=== PATIENT | female | born 1970 | race African-American/Black ===

== ENCOUNTER 2018-03-21 11:52 | Outpatient (CLI) | payer OTHER ==
[2018-03-21 13:03] LABS: Mean Corpuscular HGB CONC 32.4 g/dL (32.0-36.0); Mean Corpuscular Hemoglobin 29.1 pg (27.0-31.0); Mean Corpuscular Volume 89.7 fl (81.0-99.0); Mean Platelet Volume 9.6 fL (7.4-10.4); Platelet Count 205 thou/uL (130-400); RBC Distribution Width 13.6 % (11.5-14.5); Red Blood Cell (RBC) Count 4.81 mill/uL (4.20-5.40); White Blood Cell (WBC) Count 4.8 thou/uL (4.8-10.8)
[2018-03-21 13:16] LABS: PTT 27.9 SEC (22.9-36.1)
[2018-03-21 13:17] LABS: Prothrombin Time 13.2 SEC (12.0-14.7)
[2018-03-21 13:27] LABS: Anion Gap 12 mmol/L (10-20); BUN (Urea Nitrogen) 11 mg/dL (7.0-18.7); Calc. Creatinine Clearance 0 mL/min (70-130); Calcium 9.5 mg/dL (7.8-10.44); Carbon Dioxide 24 mmol/L (22-29); Chloride 106 mmol/L (98-107); Estimated GFR-MDRD Greater than 90; Glucose 93 mg/dL (70-105); Potassium 4.4 mmol/L (3.5-5.1); Sodium 138 mmol/L (136-145)
[2018-03-21 14:40] LABS: BHCG - Serum Negative (NEGATIVE); Pregs Control Background? CLEAR/WHITE (CLR/WHITE); Pregs Control Bar Appear? YES (CONTROL BAR)
== END 2018-03-21 11:53 | disposition home or self-care (01) ==
LOC: LABBT 11:52
PROVIDERS: ATTEND Obstetrics & Gynecology
DX: Z01.812 Encounter for preprocedural laboratory examination (principal); D21.9 Benign neoplasm of connective and other soft tissue, unspecified; N92.6 Irregular menstruation, unspecified; D64.9 Anemia, unspecified
CPT/HCPCS: 80048; 84703; 85027; 85610; 85730; 86850; 86900; 86901

== ENCOUNTER 2018-03-24 07:47 | Inpatient (IN) | payer OTHER ==
[2018-03-21 12:46] VITALS: BMI 33.7
[~2018-03-24 07:47] MED LIST: ISOVUE-370 76%-LOCM 1 ML ONE
[2018-03-24] MEDS ORDERED: CEFAZOLIN/Water 2 GM/20 ML SYRINGE ONE (08:19)
[2018-03-24] MEDS ORDERED: Gabapentin 300 MG CAP PO ONE (08:30)
[2018-03-24] MEDS ORDERED: Famotidine 40 MG/4 ML VIAL SLOW IVP ONE (08:30)
[2018-03-24] MEDS ORDERED: Midazolam HCl 2 mg/2 ml Vial ONE (09:39)
[2018-03-24] MEDS ORDERED: Ondansetron HCl/PF 4 MG/2 ML Vial ONE ×2 (09:39→12:23)
[2018-03-24] MEDS ORDERED: Fentanyl 250 MCG/5 ML VIAL ONE (09:39)
[2018-03-24] MEDS ORDERED: Bupivacaine HCl 0.5%/Epinephrine 1:200,000/PF 30 ml Vial ONE (09:49)
[2018-03-24] MEDS ORDERED: Fentanyl 100 MCG/2 ML VIAL ONE ×2 (11:03→14:35)
[2018-03-24] MEDS ORDERED: Promethazine HCl 25 MG/ML VIAL IM PRN ×2 (12:06→15:49)
[2018-03-24] MEDS ORDERED: HYDROmorphone 2 MG/ML VIAL SLOW IVP PRN (12:06)
[2018-03-24] MEDS ORDERED: Ondansetron HCl/PF 4 MG/2 ML Vial IVP PRN ×2 (12:06→15:49)
[2018-03-24] MEDS ORDERED: Promethazine HCl 25 MG/ML VIAL SLOW IVP PRN (12:06)
[2018-03-24] MEDS ORDERED: Lidocaine 1% PF 5 ML VIAL ONE (12:23)
[2018-03-24] MEDS ORDERED: Dexamethasone 20 MG/5 ML VIAL ONE (12:23)
[2018-03-24] MEDS ORDERED: PROPOFOL 200 MG/20 ML VIAL ONE (12:23)
[2018-03-24] MEDS ORDERED: Glycopyrrolate 0.2 MG/ML 5 ML SYRINGE ONE (12:23)
[2018-03-24] MEDS ORDERED: Labetalol 100 MG/20 ML MDV ONE (12:23)
[2018-03-24] MEDS ORDERED: ePHEDrine/0.9% NaCl/PF SYRINGE 50 mg/10 ml ONE (12:23)
[2018-03-24] MEDS ORDERED: Ropivacaine 0.2% 550 ML 750 ML NERVE BLCK SCH (13:15)
[2018-03-24] MEDS ORDERED: Ropivacaine HCl/PF 750 ML in Premix Bag 1 BAG NERVE BLCK SCH (13:45)
[2018-03-24] MEDS ORDERED: oxyCODONE ER 10 MG TAB PO PRN (15:49)
[2018-03-24] MEDS ORDERED: Simethicone Chewable 80 MG TAB PO PRN (15:49)
[2018-03-24] MEDS ORDERED: diphenhydrAMINE 25 MG CAP PO PRN (15:49)
[2018-03-24] MEDS ORDERED: Morphine 5 MG/ML SYRINGE SLOW IVP PRN (15:49)
[2018-03-24] MEDS ORDERED: traMADol HCl 50 MG TAB PO PRN ×2 (15:49)
[2018-03-24] MEDS ORDERED: Bisacodyl 10 MG SUPP PR PRN (15:49)
[2018-03-24] MEDS ORDERED: Zolpidem Tartrate 5 MG TAB PO PRN (15:49)
[2018-03-24] MEDS ORDERED: Acetaminophen 500 MG TAB PO PRN (16:36)
--- NOTE | 2018-03-24 19:03 | RAD ---
PORTABLE CHEST: HISTORY: Chest pain and pressure. FINDINGS: Heart size is within normal limits, considering the portable technique. Mediastinal structures are u nremarkable. Lungs are clear of infiltrates. No signs of failure. IMPRESSION: No active intrathoracic disease. POS: [facility]
--- NOTE | 2018-03-24 19:54 | CT ---
CT ANGIO CHEST PERFORMED WITH INTRAVENOUS CONTRAST ENHANCEMENT WITH 3D RECONSTRUCTIONS: HISTORY: Chest pain and pressure. FINDINGS: The lungs are clear of infiltrative process. There is some minimal linear scarring in the lung bases . No pulmonary nodules or pleural effusions. The thoracic aorta is normal in caliber. There is fairly good pulmonary arterial opacification. No CT evidence for pulmonary embolus. More peripheral emboli are not excluded on the basis of this exam . The visualized liver parenchyma shows a peripherally enhancing lesion in the right lobe of the liver. This is most likely a hemangioma, not fully characterized on this exam. The right and left adrenal glands are normal in appearance. IMPRESSION: 1. No CT evidence for pulmonary embolus. 2. Peripherally enhancing mass, measuring approximately 2.2 cm in size, within the right lobe of the liver, most likely a hemangioma. POS: [facility]
[2018-03-24 20:49] LABS: Troponin I Less than 0.010 ng/mL (< 0.028)
[2018-03-24] MEDS: Sodium Chloride 0.9% 1,000 ML IV SCH (22:32)
[2018-03-24] MEDS: Ibuprofen 800 MG TAB PO SCH (22:33)
[2018-03-25] MEDS ORDERED: Enoxaparin Sodium 40 MG/0.4 ML SYRINGE SC SCH (00:01)
[2018-03-25] MEDS: Sodium Chloride 0.9% 1,000 ML IV SCH ×2 (00:55→09:10)
--- NOTE | 2018-03-25 01:39 | PRG ---
DATE OF SERVICE: 03/24/2018 This is hospital day #0. HISTORY OF PRESENT ILLNESS: Ms. Veena Arriaza is a 47-year-old status post a robotic-assisted total laparoscopic hysterectomy with bilateral salpingectomy with intracorporeal morcellation of large uterus with fibroids. Of note, the patient has a history of pulmonary embolus in 2017, off warfarin. I was notified by RN due to patient's complaint of chest pressure and discomfort. RN states that the patient's exam was stable and vital signs were stable. However, patient did continue to complain about this despite receiving pain medications. OBJECTIVE: VITAL SIGNS: Pulse is 96, respiratory rate was 22, oxygen saturation is 97% on room air, blood pressure is 166/94. Per RN, the remainder of the exam was benign. IMAGING: A chest x-ray was negative for any acute process. EKG was interpreted to be negative for acute process. CT exam did not demonstrate any evidence for pulmonary embolus. LABORATORY DATA: Troponins was less than 0.010. ASSESSMENT: A 47-year-old F, POD #0 with chest discomfort that has now resolved. Reviewed normal imaging and laboratory assessment with the floor RN. RN states that the patient's symptoms have resolved after ambulation. The patient is scheduled to start prophylactic Lovenox and this can be due to her history, and I will complete 3 troponin evaluations to completely evaluate for cardiopulmonary and pericardial process. We will continue to monitor the patient closely for her postoperative care. VERONIKA
[2018-03-25 02:19] LABS: Troponin I Less than 0.010 ng/mL (< 0.028)
--- NOTE | 2018-03-25 05:06 | OP ---
PREOPERATIVE DIAGNOSES: 1. Abnormal uterine bleeding. 2. Uterine fibroids. 3. Anemia with history of requiring transfusion. 4. History of pulmonary embolus. POSTOPERATIVE DIAGNOSES: 1. Abnormal uterine bleeding. 2. Uterine fibroids. 3. Anemia with history of requiring transfusion. 4. History of pulmonary embolus. PROCEDURES: 1. Robotic assisted total laparoscopic hysterectomy. 2. Bilateral salpingectomy. 3. Contained intracorporeal morcellation of specimen using gel point system. SURGEON: Graciela Wang D.O. TRAY SETTER: Debbie Smith M.D. ANESTHESIA: General. COMPLICATIONS: None. ESTIMATED BLOOD LOSS: 100 mL. IV FLUIDS: 1700 mL. URINE OUTPUT: 230 mL. FINDINGS: Normal external genitalia, normal vaginal and cervical epithelium, uterus approximately 16-17 cm in length with a large fundal fibroid as well as small fibroids within the remainder of the uterus, normal appearing ovaries, and fallopian tubes bilaterally and transperitoneal identification of bilateral ureters with peristalsis. INDICATIONS FOR THE PROCEDURE: Ms. Veena Arriaza is a 47-year-old G4, P3 who presented to clinic with a history of abnormal uterine bleeding due to large fibroid uterus. Patient had undergone multiple admissions requiring a transfusion due to her bleeding. She also complained of pelvic pain and pressure. Patient has a history of a pulmonary embolus in 2017 therefore has contraindication to estrogen containing medical management of her abnormal uterine bleeding and has failed other therapies. Patient has been off warfarin anticoagulation for 11 days and she had completed her treatment. Patient was counseled on her management options and highly desired definitive surgical management with a hysterectomy due to the size of the uterus, she was offered laparoscopic minimally invasive surgery versus traditional laparotomy and patient desired to proceed with laparoscopic surgery with contained morcellation. PROCEDURE IN DETAIL: The patient was brought to the operating room. She was placed under general anesthesia. The patient was placed in dorsal lithotomy position using Dave stirrups and she was appropriately positioned for robotic surgery, then she was given Ancef preoperatively. Patient was prepped and draped in the sterile fashion. An official timeout was performed. The vaginal portion was again by entering the speculum and grasping of the cervix using a single-tooth tenaculum. The cervix was sequentially dilated using Emmanuel dilators and the uterus was sounded approximately 14 cm. A JEREMY manipulator cup was inserted into the uterine cavity using a 12 cm in length and 4-cm cup and it was appropriately secured. The bladder was drained using a Ryan catheter. The gloves were exchanged and attention was turned to the abdominal portion. A supraumbilical incision was made using a scalpel and the Veress needle was inserted into the peritoneal cavity. Peritoneal cavity was insufflated, noting a normal pressure. The 12-mm trocar was inserted. The robotic camera was inserted and the patient was placed in a steep Trendelenburg position. The pelvis was evaluated, noting approximately 16-17 week uterus with a large fundal fibroid. Two assistant county attorney ports were placed, one on the right and one on the left aspect of the abdomen using the 8-mm robotic trocars. All incisions were made using local anesthesia and trocars were inserted under direct visualization. At this time, the 12-mm suprumbilical trocar incision was extended using the scalpel along the edge of the trocar and allowing for approximately 2-3 cm incision. The trocar was then removed and the Per O retractor was inserted. The GelPoint bag was placed into the abdomen and the GelPOINT device was applied. The abdomen was reinsufflated and the camera trocar as well as assistant county attorney port were then inside the GelPOINT device. The robot was then appropriately docked to the patient and a monopolar scissor and bipolar fenestrated forceps were used. The hysterectomy was begun, the left fallopian tube was coagulated along its entirely then transected completely removing the left fallopian tube. The left round ligament was then coagulated and transected, allowing entrance into the broad ligament. The anterior leaf of the broad ligament was undermined and transected down towards the level of the bladder with creating bladder reflection inferiorly. The utero-ovarian ligament was then coagulated and transected on the left side, creating hemostasis. The posterior peritoneum was then reflected and transected down towards the level of the uterosacral ligaments. The uterine vessels were further skeletonized using meticulous dissection on the left aspect of the uterus. Uterine vessels were then coagulated multiple times, however, not yet transected. The attention was turned over to the right aspect of the uterus, where the right fallopian tube was removed in its entirety using coagulation with transection. The right round ligament was then coagulated and transected as well, allowing entrance into the broad ligament on the right side. The anterior leaf of the broad ligament on the right aspect was undermined and transected allowing inferior reflection of the bladder on this side as well. The right utero-ovarian ligament was coagulated multiple times and transected, creating hemostasis. The posterior leaf of the broad ligament was also reflected down. There were areas of oozing along the right aspect of the peritoneum for increasing vasculature from the uterine fibroids that required additional hemostasis. The right uterine vessels were then skeletonized and coagulated multiple times. Attention was turned back to portion with bladder flap was further created, transecting this areolar tissue from the cervicovaginal junction. The attention was turned back to the right aspect of the uterus, where the uterine vessels were again coagulated this time and they were transected. There was an area along the right uterine vessel that required additional coagulation after transection to achieve hemostasis. The colpotomy was carried around anteriorly and down to the left aspect, eventually completely removing the cervix from the vaginal epithelium. Once the uterus and cervix were completely attached, they were set aside. There was an area of bleeding on the right aspect of the vaginal cuff that was controlled using bipolar cautery. The pelvis was then irrigated and cleared of all clot and debris. The vaginal cuff was then closed in a running fashion using 0 Stratafix suture starting from the right aspect of the cuff with complete closure over to left aspect of cuff. The suture was cut and the needle was removed. The pelvis was thoroughly irrigated and cleared of all clot and debris. Tisseel hemostatic agent was placed on the cuff and the ovarian pedicles. The ON-Q pump was then inserted slightly below the umbilicus under direct visualization and the catheter was placed in the pelvic cavity. Attention was then turned to the morcellation portion of the procedure. The uterus was grasped and placed into the GelPOINT bag and the entire edge of the opening to the bag was brought through the assistant county attorney trocar. The robot was undocked from the patient. The GelPOINT bag was brought up through the GelPOINT device and the abdomen had been deflated. The specimen was completely contained within the bag. The specimen was grasped using Torres clamps and morcellation was performed in "C" fashion allowing large pieces of the uterus to be removed at once. The morcellation took approximately 25 to 30 minutes. Once the morcellation was completed the GelPOINT bag was removed. The abdomen has been completely deflated and the remaining trocars were also removed. The fascia along the midline incision was closed using a 0 Vicryl. The subcutaneous layer was also reapproximated and the skin of all sites were closed using 4-0 Monocryl and Dermabond. The patient was then placed back in supine position. All counts were correct x2. She was extubated without difficulty then transferred to the PACU in hemodynamically stable condition. The length and difficulty of the procedure were extended by approximately 30-45 minutes due to the difficulty with enlarged uterus and required extensive morcellation. VERONIKA
[2018-03-25 05:42] LABS: #Lymphocytes 1.1 thou/uL (1.20-3.40); #Monocytes 0.5 thou/uL (0.11-0.59); #Neutrophils 6.1 thou/uL (1.40-6.50); %Basophils 0.2 % (0.0-1.0); %Eosinophils 0.2 % (0.0-10.0); %Lymphocytes 14.3 % (21.0-51.0); %Monocytes 6.9 % (0.0-10.0); %Neutrophils 78.5 % (42.0-75.0); Hemoglobin 13.6 g/dL (12.0-16.0); Mean Corpuscular HGB CONC 31.4 g/dL (32.0-36.0); Mean Corpuscular Hemoglobin 28.2 pg (27.0-31.0); Mean Corpuscular Volume 89.8 fl (81.0-99.0); Mean Platelet Volume 9.3 fL (7.4-10.4); Platelet Count 240 thou/uL (130-400); RBC Distribution Width 13.6 % (11.5-14.5); Red Blood Cell (RBC) Count 4.83 mill/uL (4.20-5.40); White Blood Cell (WBC) Count 7.8 thou/uL (4.8-10.8)
[2018-03-25 05:53] LABS: Anion Gap 9 mmol/L (10-20); BUN (Urea Nitrogen) 6 mg/dL (7.0-18.7); Calc. Creatinine Clearance 130 mL/min (70-130); Calcium 9.6 mg/dL (7.8-10.44); Carbon Dioxide 30 mmol/L (22-29); Chloride 106 mmol/L (98-107); Estimated GFR-MDRD Greater than 90; Glucose 109 mg/dL (70-105); Potassium 4.3 mmol/L (3.5-5.1); Sodium 141 mmol/L (136-145)
[2018-03-25] MEDS ORDERED: HYDROcodone/Acetaminophen 5/325 mg Tablet PO PRN (08:05)
[2018-03-25] MEDS ORDERED: Milk Of Magnesia 30 ML UDCUP PO SCH (08:15)
[2018-03-25 08:20] LABS: Troponin I Less than 0.010 ng/mL (< 0.028)
--- NOTE | 2018-03-25 08:35 | PRG ---
DATE OF SERVICE: 03/25/2018 HISTORY OF PRESENT ILLNESS: Ms. Veena Arriaza is a 47-year-old female status post robotic assisted total laparoscopic hysterectomy with contained intracorporeal morcellation and bilateral salpingectomy, postoperative day #1. SUBJECTIVE: The patient had chest discomfort yesterday evening; however, this has completely resolved after she ambulated and had negative imaging. The patient complains only of abdominal discomfort this morning and she reports that she has voided unassisted and has ambulated to the bathroom. She has had minimal liquid oral intake at this point and has ordered breakfast for this morning. She denies any vaginal bleeding. She does report slight nausea, but denies any vomiting. The patient has not passed flatus yet. OBJECTIVE: VITAL SIGNS: Stable. She is slightly hypertensive; however, likely due to anxiety related to being in the hospital. CARDIOVASCULAR: Regular rate and rhythm. RESPIRATORY: Unlabored breathing, clear to auscultation bilaterally. ABDOMEN: Soft, mild distention. Normal active bowel sounds x4. The laparoscopic incisions are clean, dry, and intact with Dermabond, ON-Q pump in place. Mild to moderate tenderness throughout as expected postoperatively due to morcellation of the midline port. LABORATORY DATA: Hemoglobin 13.6, hematocrit 43.4, platelet 240, creatinine is 0.77, troponin at 4:00 o'clock this morning was less than 0.010, troponin at 8: 00 o'clock is still pending. ASSESSMENT: 1. Postoperative day #1 status post robotic assisted total laparoscopic hysterectomy with contained intracorporeal morcellation and a bilateral salpingectomy. 2. Chest discomfort (resolved). PLAN: Advance diet this morning and give the patient Milk of Magnesia to help with flatus. Improve pain control today with oral medications. Otherwise, she is meeting the postoperative expectations for postoperative day #1. Her chest pain is completely resolved and her cardiac workup has been benign. She likely will be discharged this afternoon. VERONIKA
[2018-03-25] MEDS: Ibuprofen 800 MG TAB PO SCH ×2 (09:10→13:41)
[2018-03-25 13:21] VITALS: BP 139/81; TEMP 98.5
--- NOTE | 2018-03-25 14:34 | EKG ---
Test Reason : STAT Blood Pressure : / mmHG Vent. Rate : 091 BPM Atrial Rate : 091 BPM P-R Int : 178 ms QRS Dur : 084 ms QT Int : 364 ms P-R-T Axes : 047 006 024 degrees QTc Int : 447 ms Normal sinus rhythm with sinus arrhythmia Cannot rule out Anterior infarct , age undetermined Abnormal ECG No previous ECGs available Confirmed by DR. Shana BAEZ ([id number]) on 03/25/2018 2:34:22 PM Referred By: BRAN Confirmed By:DR. Shana BAEZ
--- NOTE | 2018-03-25 22:41 | DIS ---
DATE OF ADMISSION: 03/24/2018 DATE OF DISCHARGE: 03/25/2018 ADMISSION DIAGNOSES: 1. Status post robotic-assisted total laparoscopic hysterectomy with contained intracorporeal morcellation and bilateral salpingectomy. 2. Chest pain that resolved. DISCHARGE DIAGNOSES: Status post robotic-assisted total laparoscopic hysterectomy with contained intracorporeal morcellation and a bilateral salpingectomy. ADMISSION AND DISCHARGE PHYSICIAN: Graciela Wang D.O. BRIEF HOSPITAL COURSE: Ms. Veena Arriaza is a 47-year-old female who was admitted for robotic-assisted total laparoscopic hysterectomy with morcellation and a bilateral salpingectomy due to history of abnormal uterine bleeding due to uterine fibroids. The patient underwent above procedures without complication. On postoperative day #0, she did complain of chest discomfort. Patient received extensive workup with a negative troponin, negative chest x-ray , EKG, and CT angiogram due to her history of having a prior pulmonary embolus. Patient did receive anticoagulation after her surgery and will continue this for 2 weeks. She was meeting all requirements for discharge. She is ambulating , voiding, tolerating a general diet, and passing flatus and her pain is controlled with oral medications. Follow up in 2 weeks. ACTIVITY: Reviewed importance of pelvic rest. No heavy lifting, pulling, or pushing for 6 weeks. MEDICATIONS: 1. [place] 5/325 one tablet p.o. q.6 hours p.r.n. pain. 2. Lovenox 40 mg subcutaneous daily. MTDD
== END 2018-03-25 16:04 | disposition home or self-care (01) | DRG 743 ==
LOC: SURG A 07:47 → EDSTATUS 12:00 → 3SE 15:13
PROVIDERS: ADMIT Obstetrics & Gynecology; ATTEND Obstetrics & Gynecology
PROC: 0UT9FZZ Resection of Uterus, Via Natural or Artificial Opening With Percutaneous Endoscopic Assistance (ICD-10-PCS; principal; 2018-03-24)
PROC: 0UT7FZZ Resection of Bilateral Fallopian Tubes, Via Natural or Artificial Opening With Percutaneous Endoscopic Assistance (ICD-10-PCS; 2018-03-24)
PROC: 8E0W4CZ Robotic Assisted Procedure of Trunk Region, Percutaneous Endoscopic Approach (ICD-10-PCS; 2018-03-24)
DX: D25.1 Intramural leiomyoma of uterus (principal); N92.6 Irregular menstruation, unspecified; D64.9 Anemia, unspecified; N93.9 Abnormal uterine and vaginal bleeding, unspecified; Z86.711 Personal history of pulmonary embolism; Z79.01 Long term (current) use of anticoagulants
CPT/HCPCS: 36415; 71045; 71275; 80048; 84484; 85025; 88307; 93005; 93010; J2270; J0131; J0670; J1100; J1650; J2001; J2250; J2405; J2550; J2704; J2795; J3010

== ENCOUNTER 2018-04-10 17:54 | Emergency (ER) | payer OTHER ==
[2018-04-10 18:54] LABS: #Eosinphils 0.3 thou/uL (0.0-0.7); #Monocytes 0.4 thou/uL (0.11-0.59); #Neutrophils 2.5 thou/uL (1.40-6.50); %Basophils 0.6 % (0.0-1.0); %Eosinophils 5.8 % (0.0-10.0); %Lymphocytes 38.1 % (21.0-51.0); %Monocytes 6.7 % (0.0-10.0); %Neutrophils 48.8 % (42.0-75.0); Hemoglobin 13.2 g/dL (12.0-16.0); Mean Corpuscular Hemoglobin 28.3 pg (27.0-31.0); Mean Corpuscular Volume 88.3 fl (81.0-99.0); Mean Platelet Volume 8.6 fL (7.4-10.4); Platelet Count 242 thou/uL (130-400); RBC Distribution Width 13.5 % (11.5-14.5); Red Blood Cell (RBC) Count 4.65 mill/uL (4.20-5.40); White Blood Cell (WBC) Count 5.2 thou/uL (4.8-10.8)
== END 2018-04-10 19:10 | disposition home or self-care (01) ==
LOC: ERS 17:54
DX: N99.820 Postprocedural hemorrhage of a genitourinary system organ or structure following a genitourinary system procedure (principal)
CPT/HCPCS: 36415; 85025; 99284